=== PATIENT | male | born 1935 ===

== ENCOUNTER 2022-08-27 18:22 | Emergency (ER) | payer MEDICARE, OTHER ==
[2022-08-27] MEDS: Metoprolol Tartrate 5 MG in Sodium Chloride 0.9% 50 ML IV ONE (19:00)
[2022-08-27] MEDS: Metoprolol Tartrate 5 MG/5 ML SDV IVPUSH ONE (19:00)
[2022-08-27] MEDS: Sodium Chloride 0.9% 10 ML Syringe FLUSH PRN (19:01)
[2022-08-27 19:59] LABS: ESTIMATED GFR 27 mL/min (>60)
[2022-08-27] MEDS ORDERED: Metoprolol Succinate 100 MG Tab.ER ONE (20:00)
[2022-08-28 03:48] VITALS: BP 146/79; PULSE 78
[2022-08-28] MEDS: Metoprolol Tartrate 5 MG/5 ML SDV IVPUSH ONE (03:49)
[2022-08-28] MEDS: Metoprolol Succinate 100 MG Tab.ER PO ONE (03:51)
== END 2022-08-27 20:25 | disposition home or self-care (01) ==
LOC: LB.ED 18:22
DX: I48.91 Unspecified atrial fibrillation (principal); I25.10 Atherosclerotic heart disease of native coronary artery without angina pectoris; I12.9 Hypertensive chronic kidney disease with stage 1 through stage 4 chronic kidney disease, or unspecified chronic kidney disease; N18.9 Chronic kidney disease, unspecified; Z79.82 Long term (current) use of aspirin
CPT/HCPCS: 36415; 80048; 83735; 84100; 84484; 85027; 93005; 96374; 99285; A9270; J3490; 93010; 99283